=== PATIENT | male | born 1975 | race Hispanic/Latino ===

== ENCOUNTER 2023-05-02 10:53 | Observation (INO) | payer OTHER ==
[~2023-05-02] VITALS: Ht 180.3 cm; Wt 123.4 kg
[2023-05-02] MEDS ORDERED: ASPIRIN 325MG TAB PO ONE (11:30)
[2023-05-02 11:34] LABS: POTASSIUM 4.3 mmol/L (3.5-5.1)
[2023-05-02 11:38] LABS: ALBUMIN 3.6 g/dL (3.5-5.0); BILIRUBIN,TOTAL 0.2 mg/dL (0.2-1.0); TOTAL PROTEIN, SERUM 7.3 g/dL (6.0-8.3)
[2023-05-02 12:06] LABS: B-TYPE NATRIURETIC PEPTIDE 63 pg/mL (0-100)
[2023-05-02 12:07] LABS: BASOPHILS # (AUTO) 0.04 K/uL (0.00-0.20); BASOPHILS % (AUTO) 0.5 % (0.0-5.0); EOSINOPHILS # (AUTO) 0.08 K/uL (0.00-0.70); HEMATOCRIT 39.6 % (42-54); IMMATURE GRANULOCYTE ABSOLUTE 0.04 K/uL (0-1); LYMPHOCYTES # (AUTO) 2.1 K/uL (1.0-4.8); LYMPHOCYTES % (AUTO) 24.8 % (21.0-51.0); MEAN CORPUSCULAR HGB CONC 34.6 g/dL (32.0-36.0); MEAN CORPUSCULAR VOLUME 86.7 fL (79-99); MONOCYTES # (AUTO) 0.5 K/uL (0.1-1.0); MONOCYTES % (AUTO) 6.1 % (3.0-13.0); NEUTROPHILS # (AUTO) 5.6 K/uL (1.8-7.7); NEUTROPHILS % (AUTO) 67.1 % (40.0-77.0); PLATELET COUNT (AUTO) 184 K/uL (130-400); RED BLOOD CELL COUNT(AUTO) 4.57 MIL/uL (4.50-6.20); RED CELL DISTRIBUTION WIDTH 12.6 % (11.0-15.5); WHITE BLOOD COUNT (AUTO) 8.3 K/uL (4.8-10.8)
[2023-05-02] MEDS ORDERED: HYDRALAZINE 20MG/ML VIAL IV ONE (14:30)
[2023-05-02 14:34] LABS: AMPHET/METH SCREEN,URINE NEGATIVE (NEGATIVE); BARBITURATE SCREEN, URINE NEGATIVE (NEGATIVE); BENZODIAZEPINES SCREEN,URINE NEGATIVE (NEGATIVE); CANNABINOID SCREEN,URINE NEGATIVE (NEGATIVE); COCAINE SCREEN,URINE NEGATIVE (NEGATIVE); OPIATE SCREEN,URINE NEGATIVE (NEGATIVE); PHENCYCLIDINE SCREEN,URINE NEGATIVE (NEGATIVE)
[2023-05-02] MEDS ORDERED: MAG/ALUM/SIMETH 30 ML UDCUP PO ONE ×2 (15:00)
[2023-05-02] MEDS ORDERED: FAMOTIDINE 20MG VIAL IV ONE (15:00)
[2023-05-02 15:05] LABS: APPEARANCE,URINE CLEAR (CLEAR); BILIRUBIN,URINE NEGATIVE (NEGATIVE); COLOR,URINE LIGHT-YELLOW (YELLOW); GLUCOSE, URINE (UA) 50 mg/dL (NEGATIVE); KETONES,URINE NEGATIVE (NEGATIVE); LEUKOCYTE ESTERASE ,URINE NEGATIVE Leu/uL (NEGATIVE); NITRATE,URINE NEGATIVE (NEGATIVE); OCCULT BLOOD,URINE NEGATIVE (NEGATIVE); PROTEIN,URINE 10 mg/dL (NEGATIVE); UROBILINOGEN,URINE 0.2 mg/dL (0.2-1.0)
[2023-05-02 15:06] LABS: ADD UA MICROSCOPIC YES
[2023-05-02 15:09] LABS: MUCUS,URINE RARE LPF (None Seen); RBC,URINE 0-1 /HPF (0-1)
[2023-05-02] MEDS ORDERED: NITROGLYCERIN 0.4 MG SL TAB SL ONE (15:22)
[2023-05-02] MEDS ORDERED: NITROGLYCERIN 1GM OINT 1 INCH/1GM TD ONE (15:30)
[2023-05-02] MEDS ORDERED: LIDOCAINE HCL 2% VISCOUS 15 ML UDCUP PO ONE (15:30)
[2023-05-02] MEDS ORDERED: NITROGLYCERIN 0.4 MG SL TAB SL PRN (15:30)
[2023-05-02] MEDS ORDERED: MORPHINE 4 MG SYG IV PRN (17:30)
[2023-05-02] MEDS ORDERED: ACETAMINOPHEN 325 MG TAB PO PRN ×2 (17:30)
[2023-05-02] MEDS: NITROGLYCERIN 1GM OINT 1 INCH/1GM TD SCH (17:30)
[2023-05-02] MEDS ORDERED: MORPHINE 2 MG SYG IV PRN (17:30)
[2023-05-02] MEDS ORDERED: ONDANSETRON 4MG INJ IV PRN (17:30)
[2023-05-02] MEDS ORDERED: METF500S9 PO (17:36)
[2023-05-02] MEDS ORDERED: ATOR10 PO (17:36)
[2023-05-02] MEDS ORDERED: LISI40TA9 PO (17:36)
[2023-05-02] MEDS: FAMOTIDINE 20MG VIAL IV SCH (21:48)
[2023-05-02] MEDS ORDERED: HYDRALAZINE 20MG/ML VIAL IV PRN (22:00)
[2023-05-02 22:35] VITALS: BP 180/81; PULSE 59; RESP 18
[2023-05-02 23:00] VITALS: O2SAT 97
[2023-05-02] MEDS ORDERED: LISINOPRIL 40 MG TABLET PO ONE (23:30)
[2023-05-03] MEDS ORDERED: METF-446 PO (00:37)
[2023-05-03] MEDS ORDERED: LISI40TA9 PO (00:37)
[2023-05-03] MEDS: NITROGLYCERIN 1GM OINT 1 INCH/1GM TD SCH ×2 (00:55→09:30)
[2023-05-03 04:55] VITALS: BP 158/72; PULSE 96; RESP 18
[2023-05-03 05:51] LABS: BASOPHILS # (AUTO) 0.05 K/uL (0.00-0.20); BASOPHILS % (AUTO) 0.5 % (0.0-5.0); EOSINOPHILS # (AUTO) 0.23 K/uL (0.00-0.70); EOSINOPHILS % (AUTO) 2.1 % (0.0-8.0); HEMATOCRIT 39.4 % (42-54); IMMATURE GRANULOCYTE ABSOLUTE 0.05 K/uL (0-1); LYMPHOCYTES # (AUTO) 2.1 K/uL (1.0-4.8); LYMPHOCYTES % (AUTO) 19.1 % (21.0-51.0); MEAN CORPUSCULAR HGB CONC 34.3 g/dL (32.0-36.0); MEAN CORPUSCULAR VOLUME 87.6 fL (79-99); MONOCYTES # (AUTO) 1.1 K/uL (0.1-1.0); MONOCYTES % (AUTO) 9.7 % (3.0-13.0); NEUTROPHILS # (AUTO) 7.5 K/uL (1.8-7.7); NEUTROPHILS % (AUTO) 68.1 % (40.0-77.0); PLATELET COUNT (AUTO) 176 K/uL (130-400); RED CELL DISTRIBUTION WIDTH 12.8 % (11.0-15.5)
[2023-05-03 06:01] LABS: ALANINE AMINOTRANSFERASE 20 U/L (12-78); ALBUMIN 3.4 g/dL (3.5-5.0); ASPARTATE AMINOTRANSFERASE 19 U/L (10-37); BILIRUBIN,TOTAL 0.3 mg/dL (0.2-1.0); CARBON DIOXIDE 26 mmol/L (21-32); CHLORIDE 105 mmol/L (101-111); CREATININE 0.8 mg/dL (0.5-1.5); CRP QUANTITATIVE < 2.00 mg/L (0.00-9.0); GLOMERULAR FILTR. RATE CALC 109 mL/min (>90); GLUCOSE,RANDOM 166 mg/dL (70-105); POTASSIUM 4.3 mmol/L (3.5-5.1); SODIUM SERUM 140 mmol/L (136-145); UREA NITROGEN, BLOOD 12 mg/dL (7-18)
[2023-05-03 07:06] LABS: ERYTHROCYTE SEDIMENTATION RATE 8 MM/HR (0-15)
[2023-05-03] MEDS ORDERED: INSULIN HUMULIN R 100 UNIT/ML 3ML SQ SCH (07:30)
[2023-05-03 07:53] VITALS: O2SAT 97
[2023-05-03 08:00] VITALS: BP 162/94; PULSE 62; RESP 18
[2023-05-03] MEDS ORDERED: AMLODIPINE 5 MG TAB PO SCH (08:00)
[2023-05-03] MEDS ORDERED: METO-408 PO (08:06)
[2023-05-03] MEDS ORDERED: ENOXAPARIN SODIUM 40 MG/0.4 ML SYRINGE SQ SCH (09:00)
[2023-05-03] MEDS ORDERED: METOPROLOL TARTRATE 25 MG TAB PO SCH (09:00)
[2023-05-03] MEDS ORDERED: ASPIRIN 81 MG EC TAB PO SCH (09:00)
[2023-05-03] MEDS: METOPROLOL TARTRATE 25 MG TAB PO SCH ×2 (09:38→09:46)
[2023-05-03] MEDS: FAMOTIDINE 20MG VIAL IV SCH (09:46)
[2023-05-03] MEDS ORDERED: LISINOPRIL 40 MG TABLET PO SCH (21:00)
[2023-05-03] MEDS ORDERED: ATORVASTATIN 40 MG TABLET PO SCH (21:00)
== END 2023-05-03 11:35 | disposition home or self-care (01) ==
LOC: EDH 10:53 → INTOOBSV 17:29 → EDHIP 17:29 → 4DH 22:24
PROVIDERS: ADMIT Hospitalist; ATTEND Hospitalist
DX: I20.0 Unstable angina (principal); I10 Essential (primary) hypertension; E11.9 Type 2 diabetes mellitus without complications; E78.00 Pure hypercholesterolemia, unspecified; E66.9 Obesity, unspecified; Z88.8 Allergy status to other drugs, medicaments and biological substances; Z79.84 Long term (current) use of oral hypoglycemic drugs; Z79.899 Other long term (current) drug therapy
CPT/HCPCS: 99285; 96374; 71045; 96375; 96376 ×2; 84484 ×3; 80053 ×2; 83880; 80305; 85025 ×2; 36415 ×2; 93005 ×2; 81001; 93306; 96372; 83036; 85651; 82948; 86140; 93356; J3490 ×3; J0360 ×2; G0378; J1650; 96365; 96366